=== PATIENT | male | born 1995 | race American Indian/Alaskan Native ===

== ENCOUNTER 2017-11-17 19:28 | Emergency (ER) | payer BC ==
[2017-11-17 19:34] VITALS: RESP 18
[2017-11-17] MEDS ORDERED: guaiFENesin 200 mg/10 ml Syrup UD PO STA (20:50)
--- NOTE | 2017-11-17 20:57 | ED PDOC ---
Arrival/HPI - General Historian: Patient <Reggie Aguirre A - Last Filed: 11/17/17 21:04> <Kevin Cbua - Last Filed: 11/17/17 21:45> - General Chief Complaint: Cough, Cold, Congestion Time Seen by Provider: 11/17/17 19:53 - History of Present Illness Narrative History of Present Illness (Text): 11/17/17 21:04 22yo male with no PMHx present with compliant of nonproductive cough, bodyache, fever, and headache x 2days. States he took Tylenol last night with some relieve. He notes that his girlfriend had cold symptoms. Denies nausea, vomiting , chest pain, SOB, diaphoresis, abdominal op (Reggie Aguirre A) Past Medical History - Provider Review Nursing Documentation Reviewed: Yes - Infectious Disease Hx of Infectious Diseases: None - Psychiatric Hx Substance Use: No - Anesthesia Hx Anesthesia: No <Reggie Aguirre A - Last Filed: 11/17/17 21:04> Family/Social History - Physician Review Nursing Documentation Reviewed: Yes Family/Social History: Unknown Family HX Smoking Status: Never Smoked Hx Alcohol Use: No Hx Substance Use: No <Reggie Aguirre A - Last Filed: 11/17/17 21:04> Allergies/Home Meds <Reggie Aguirre A - Last Filed: 11/17/17 21:04> <Kevin Cuba - Last Filed: 11/17/17 21:45> Allergies/Adverse Reactions: Allergies No Known Allergies Allergy (Verified 11/17/17 19:31) Review of Systems - Physician Review All systems were reviewed & negative as marked: Yes - Review of Systems Constitutional: Fevers Eyes: Normal ENT: Normal Respiratory: Cough Cardiovascular: Normal Gastrointestinal: Normal Genitourinary Male: Normal Musculoskeletal: Myalgias Skin: Normal Neurological: Normal Endocrine: Normal Hemo/Lymphatic: Normal Psychiatric: Normal <Reggie Aguirre A - Last Filed: 11/17/17 21:04> Physical Exam Vital Signs Reviewed: Yes Temperature: Febrile Blood Pressure: Normal Pulse: Regular Respiratory Rate: Normal Appearance: Positive for: Well-Appearing, Non-Toxic, Comfortable Pain Distress: None Mental Status: Positive for: Alert and Oriented X 3 - Systems Exam Head: Present: Atraumatic, Normocephalic Pupils: Present: PERRL Extroacular Muscles: Present: EOMI Conjunctiva: Present: Normal Mouth: Present: Moist Mucous Membranes Neck: Present: Normal Range of Motion Respiratory/Chest: Present: Clear to Auscultation, Good Air Exchange. No: Respiratory Distress, Accessory Muscle Use, Wheezes, Decreased Breath Sounds, Rales, Retracting, Rhonchi Cardiovascular: Present: Regular Rate and Rhythm, Normal S1, S2. No: Murmurs Abdomen: Present: Normal Bowel Sounds. No: Tenderness, Distention, Peritoneal Signs Back: Present: Normal Inspection Upper Extremity: Present: Normal Inspection. No: Cyanosis, Edema Lower Extremity: Present: Normal Inspection. No: Edema Neurological: Present: GCS=15, CN II-XII Intact, Speech Normal Skin: Present: Warm, Dry, Normal Color. No: Rashes Psychiatric: Present: Alert, Oriented x 3, Normal Insight, Normal Concentration <Diru,Happiness A - Last Filed: 11/17/17 21:04> Vital Signs Temp Pulse Resp BP Pulse Ox 11/17/17 21:29 98.2 F 68 18 124/78 98 11/17/17 19:31 100.7 F H 98 H 18 126/76 97 - Lab Interpretations Lab Results: Lab Results 11/17/17 20:00: Influenza Typ A,B (EIA) Pos for influenza a H - RAD Interpretation Radiology Orders: 11/17/17 20:01 CHEST TWO VIEWS (PA/LAT) [RAD] Stat - Medication Orders Current Medication Orders: Discontinued Medications Guaifenesin (Robitussin) 200 mg PO ONCE STA Stop: 11/17/17 20:51 Last Admin: 11/17/17 21:09 Dose: 200 mg Ibuprofen (Motrin Tab) 600 mg PO STAT STA Stop: 11/17/17 20:52 Last Admin: 11/17/17 21:09 Dose: 600 mg Oseltamivir Phosphate (Tamiflu Cap) 75 mg PO ONCE STA PRN Reason: Protocol Stop: 11/17/17 20:51 Last Admin: 11/17/17 21:09 Dose: 75 mg - 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 / has examined the patient and agrees with the treatment plan. <Kevin Cuba - Last Filed: 11/17/17 21:45> Disposition/Present on Arrival - Present on Arrival Any Indicators Present on Arrival: No History of DVT/PE: No History of Uncontrolled Diabetes: No Urinary Catheter: No History of Decub. Ulcer: No History Surgical Site Infection Following: None - Disposition Have Diagnosis and Disposition been Completed?: Yes Disposition Time: 21:15 Patient Plan: Discharge <Reggie Aguirre - Last Filed: 11/17/17 21:04> <Kevin Cuba - Last Filed: 11/17/17 21:45> - Disposition Diagnosis: Influenza Disposition: HOME/ ROUTINE Condition: STABLE Discharge Instructions (ExitCare): Influenza (ED) Additional Instructions: Drink plenty of fluid and rest Follow up with your Doctor Return to ED for any new or worsening symptoms Prescriptions: Benzonatate [Tessalon Perles] 100 mg PO TID #20 sgl Ibuprofen [Motrin Tab] 600 mg PO Q6 #20 tab Oseltamivir Phosphate [Tamiflu] 75 mg PO BID #10 capsule Referrals: Dionisio Correa, [Primary Care Provider] - [place] up with [place] [facility] [place] - Follow up with primary Forms: [employer] (Bulgarian), WORK NOTE
[2017-11-17 21:29] VITALS: BP 124/78; PULSE 68; TEMP 98.2; O2SAT 98
--- NOTE | 2017-11-18 08:37 | RAD ---
HISTORY: cough COMPARISON: No prior. TECHNIQUE: Chest PA and lateral FINDINGS: LUNGS: No active pulmonary disease. PLEURA: No significant pleural effusion identified. No pneumothorax apparent. CARDIOVASCULAR: Normal. OSSEOUS STRUCTURES: No significant abnormalities. VISUALIZED UPPER ABDOMEN: Normal. OTHER FINDINGS: None. IMPRESSION: No active disease.
== END 2017-11-17 21:37 | disposition home or self-care (01) ==
LOC: ED 19:28
DX: J11.1 Influenza due to unidentified influenza virus with other respiratory manifestations (principal)